=== PATIENT | male | born 1955 | race Caucasian/White ===

== ENCOUNTER 2024-01-26 13:32 | Emergency (ER) | payer MEDICAID, OTHER ==
[~2024-01-26] VITALS: Ht 167.6 cm; Wt 136.1 kg
[2024-01-26 13:35] VITALS: BP_SYST 170; PULSE 92; RESP 19; TEMP 97.5; O2SAT 97
== END 2024-01-26 17:10 | disposition home or self-care (01) ==
LOC: SED 13:32
DX: E11.65 Type 2 diabetes mellitus with hyperglycemia (principal); F17.200 Nicotine dependence, unspecified, uncomplicated; R45.1 Restlessness and agitation; I10 Essential (primary) hypertension
CPT/HCPCS: 82948; 99283

== ENCOUNTER 2024-01-26 18:54 | Emergency (ER) | payer MEDICAID, OTHER ==
[~2024-01-26] VITALS: Ht 167.6 cm; Wt 136.1 kg
[2024-01-26 19:40] VITALS: BP_SYST 145; PULSE 87; RESP 20; O2SAT 95
[2024-01-26 20:35] VITALS: BP_SYST 145; PULSE 87; RESP 20; O2SAT 95
== END 2024-01-26 20:35 | disposition home or self-care (01) ==
LOC: SED 18:54
DX: E11.65 Type 2 diabetes mellitus with hyperglycemia (principal); F17.200 Nicotine dependence, unspecified, uncomplicated; I10 Essential (primary) hypertension; Z98.890 Other specified postprocedural states; Z79.4 Long term (current) use of insulin; Z79.84 Long term (current) use of oral hypoglycemic drugs
CPT/HCPCS: 82948; 99283